=== PATIENT | female | born 1945 | race Caucasian/White ===

== ENCOUNTER 2021-04-22 07:35 | Observation (INO) ==
[2021-04-22] MEDS ORDERED: Ondansetron 4 MG/2 ML VIAL IVP PRN (07:56)
[2021-04-22] MEDS ORDERED: Naloxone 0.4 MG/ML INJ IVP PRN (07:56)
[2021-04-22 09:26] LABS: Bilirubin,Urine Negative (Negative); Blood,Urine Negative (Negative); Clarity,Urine Clear (Clear); Color,Urine Colorless (Yellow); Glucose,Urine (UA) Normal (Normal); Ketones,Urine Negative (Negative); Leukocyte Esterase,Urine Negative (Negative); Nitrite,Urine Negative (Negative); Protein,Urine Negative (Neg-Trace); Specific Gravity,Urine 1.009 (1.010-1.025); Urobilinogen,Urine Normal (Normal)
[2021-04-22 10:19] LABS: Adenovirus Not Detected (Not Detect); Coronavirus 229E Not Detected (Not Detect); Coronavirus HKU1 Not Detected (Not Detect); Coronavirus NL63 Not Detected (Not Detect); Coronavirus OC43 Not Detected (Not Detect); Human Metapneumovirus Not Detected (Not Detect); Human Rhinovirus/Enterovirus Not Detected (Not Detect); Influenza A Subtype 2009 H1 Not Detected (Not Detect); Parainfluenza Virus 1 Not Detected (Not Detect); Parainfluenza Virus 2 Not Detected (Not Detect); SARS-CoV-2 Not Detected (Not Detect)
[2021-04-22 10:20] LABS: Bordetella Pertussis Not Detected (Not Detect); Chlamydophila pneumoniae Not Detected (Not Detect); Influenza B Not Detected (Not Detect); Mycoplasma pneumoniae Not Detected (Not Detect); Parainfluenza Virus 3 Not Detected (Not Detect); Parainfluenza Virus 4 Not Detected (Not Detect); Respiratory Syncytial Virus Not Detected (Not Detect)
[2021-04-22 10:51] LABS: Basophils % 0.6 %; Eosinophils # 0.1 K/mcL (0.0-0.6); Hematocrit 33.7 % (35.3-44.9); Hemoglobin 10.9 g/dL (11.5-15.4); Immature Granulocytes % 0.3 % (0-4); Lymphocytes # 0.7 K/mcL (0.6-4.6); Lymphocytes % 20.5 %; Mean Corpuscular HGB Conc 32.3 g/dL (31.6-35.5); Mean Corpuscular Hemoglobin 29.7 pg (28.0-33.3); Mean Corpuscular Volume 91.8 fL (83.0-100.0); Mean Platelet Volume 10.1 fL (9.4-12.4); Monocytes # 0.1 K/mcL (0.0-1.3); Monocytes % 3.9 %; Neutrophils # 2.6 K/mcL (1.6-8.9); Red Blood Count 3.67 M/mcL (3.82-4.97); Red Cell Distribution Width 14.9 % (11.5-14.5); Segmented Neutrophils % 72.7 %; White Blood Count 3.6 K/mcL (4.3-11.1)
[2021-04-22 10:53] LABS: Platelet Count 45 K/mcL (140-400)
[2021-04-22 11:02] LABS: INR 1.5; Prothrombin Time 16.4 Seconds (9.4-12.1)
[2021-04-22] MEDS ORDERED: *HR* OxyCODONE Immed Rel 5 MG TABLET PO PRN (11:08)
[2021-04-22] MEDS ORDERED: clonazePAM 0.5 MG TABLET PO PRN (11:08)
[2021-04-22] MEDS ORDERED: Benzonatate 100 MG CAPSULE PO PRN (11:08)
[2021-04-22 11:13] LABS: BUN/Creatinine Ratio 24 (6-26); Blood Urea Nitrogen 20 mg/dL (8-23); Calcium 9.1 mg/dL (8.6-10.3); Carbon Dioxide 25 mEq/L (23-29); Chloride 108 mEq/L (98-107); Glucose 272 mg/dL (70-105); Osmolality,Calculated 300 (280-300); Phosphorous 3.5 mg/dL (2.7-4.5); Potassium 3.9 mEq/L (3.5-5.1); Sodium 139 mEq/L (136-145); eGFR For African Americans > 60 (> 60); eGFR For Non-African Americans > 60 (> 60)
[2021-04-22 11:14] LABS: Troponin I < 0.03 ng/mL (< 0.04)
[2021-04-22] MEDS ORDERED: POLYMYXIN B SULF OP SCH (11:15)
[2021-04-22] MEDS ORDERED: NEOMYCIN OP SCH (11:15)
[2021-04-22] MEDS ORDERED: [UNRECOGNIZED DRUG - OTHER] OP SCH (11:15)
[2021-04-22 11:18] LABS: Procalcitonin 0.34 ng/mL (0.00-0.15)
[2021-04-22] MEDS ORDERED: *HR* Metoprolol 5 MG/5 ML VIAL IVP PRN (11:21)
[2021-04-22] MEDS ORDERED: Perflutren Lipid Microsphere 1.3 ML in 0.9 % Sodium Chloride 8.7 ML IVP PRN (11:25)
[2021-04-22 11:28] LABS: Thyroid Stimulating Hormone 4.968 mcIU/mL (0.340-5.600)
[2021-04-22 12:13] LABS: C-Reactive Protein 13 mg/L (Less than 10)
[2021-04-22] MEDS ORDERED: Isovue-370 500 ML BOTTLE IVP ONE (13:01)
[2021-04-22] MEDS: ceFAZolin 2,000 MG in 0.9 % Sodium Chloride 100 ML IVPB SCH (14:54)
[2021-04-22] MEDS: Nystatin Ointment 15 GM TUBE TP SCH ×2 (14:54→20:08)
[2021-04-22] MEDS: Nystatin POWDER 30 GM BOTTLE TP SCH ×2 (14:54→20:08)
[2021-04-22] MEDS: Doxycycline 100 MG in 0.9 % Sodium Chloride Mini Bag 100 ML IVPB SCH (18:00)
[2021-04-22] MEDS: Mirtazapine 15 MG TABLET PO SCH (20:07)
[2021-04-23] MEDS: ceFAZolin 2,000 MG in 0.9 % Sodium Chloride 100 ML IVPB SCH ×2 (00:26→09:36)
[2021-04-23] MEDS: Doxycycline 100 MG in 0.9 % Sodium Chloride Mini Bag 100 ML IVPB SCH (05:08)
[2021-04-23 05:54] LABS: Basophils % 0.3 %; Hemoglobin 10.6 g/dL (11.5-15.4); Mean Corpuscular Hemoglobin 29.5 pg (28.0-33.3); Red Blood Count 3.59 M/mcL (3.82-4.97); Segmented Neutrophils % 62.3 %; White Blood Count 3.2 K/mcL (4.3-11.1)
[2021-04-23 05:56] LABS: Eosinophils # 0.1 K/mcL (0.0-0.6); Eosinophils % 1.9 %; Hematocrit 33.2 % (35.3-44.9); Immature Granulocytes % 0.3 % (0-4); Immature Platelets 3.8 % (1.1-6.1); Lymphocytes # 0.9 K/mcL (0.6-4.6); Lymphocytes % 28.9 %; Mean Corpuscular HGB Conc 31.9 g/dL (31.6-35.5); Mean Corpuscular Volume 92.5 fL (83.0-100.0); Mean Platelet Volume 11.9 fL (9.4-12.4); Monocytes # 0.2 K/mcL (0.0-1.3); Monocytes % 6.3 %; Red Cell Distribution Width 14.6 % (11.5-14.5)
[2021-04-23 05:58] LABS: Platelet Count 47 K/mcL (140-400)
[2021-04-23 06:13] LABS: BUN/Creatinine Ratio 20 (6-26); Blood Urea Nitrogen 17 mg/dL (8-23); Calcium 8.8 mg/dL (8.6-10.3); Carbon Dioxide 27 mEq/L (23-29); Chloride 107 mEq/L (98-107); Glucose 243 mg/dL (70-105); Osmolality,Calculated 298 (280-300); Potassium 3.9 mEq/L (3.5-5.1); Sodium 139 mEq/L (136-145); eGFR For African Americans > 60 (> 60); eGFR For Non-African Americans > 60 (> 60)
[2021-04-23] MEDS ORDERED: Cyanocobalamin (B-12) 1,000 MCG/ML VIAL IM SCH (07:30)
[2021-04-23] MEDS ORDERED: NON-FORMULARY MEDICATION 1 EACH EACH (Fluticasone/Salmeterol [Advair 250-50 Diskus] 1 EACH IH SCH (09:00)
[2021-04-23] MEDS: allopurinoL 100 MG TABLET PO SCH (09:22)
[2021-04-23] MEDS: levETIRAcetam 250 MG TABLET PO SCH ×2 (09:22→20:52)
[2021-04-23] MEDS: gemfibroziL 600 MG TABLET PO SCH ×2 (09:23→16:26)
[2021-04-23] MEDS: Nystatin Ointment 15 GM TUBE TP SCH ×3 (09:24→20:53)
[2021-04-23] MEDS: Aspirin 81 MG TAB.CHEW PO SCH (09:24)
[2021-04-23] MEDS: Nystatin POWDER 30 GM BOTTLE TP SCH ×3 (09:24→20:52)
[2021-04-23] MEDS: Furosemide 20 MG TABLET PO SCH (09:24)
[2021-04-23] MEDS: Isosorbide MONOnitrate (24 HR) 60 MG TAB.ER.24H PO SCH (09:24)
[2021-04-23] MEDS: Famotidine 20 MG TABLET PO SCH (09:24)
[2021-04-23] MEDS: Budesonide/Formoterol 80/4.5 1 PUFF INH IH SCH ×2 (10:25→21:00)
[2021-04-23] MEDS: cephALEXin 500 MG CAPSULE PO SCH ×2 (14:29→20:52)
[2021-04-23] MEDS ORDERED: *HR* Rivaroxaban 10 MG TABLET PO SCH (17:00)
[2021-04-23] MEDS: Doxycycline 100 MG CAPSULE PO SCH (20:52)
[2021-04-23] MEDS: Mirtazapine 15 MG TABLET PO SCH (20:52)
[2021-04-24 04:49] LABS: Basophils % 0.7 %; Hemoglobin 9.8 g/dL (11.5-15.4); Immature Granulocytes % 0.3 % (0-4); Monocytes % 6.8 %
[2021-04-24 04:50] LABS: Eosinophils # 0.1 K/mcL (0.0-0.6); Eosinophils % 2.7 %; Hematocrit 30.1 % (35.3-44.9); Immature Platelets 3.5 % (1.1-6.1); Lymphocytes % 32.9 %; Mean Corpuscular HGB Conc 32.6 g/dL (31.6-35.5); Mean Corpuscular Hemoglobin 30.3 pg (28.0-33.3); Mean Corpuscular Volume 93.2 fL (83.0-100.0); Mean Platelet Volume 10.7 fL (9.4-12.4); Monocytes # 0.2 K/mcL (0.0-1.3); Neutrophils # 1.7 K/mcL (1.6-8.9); Red Blood Count 3.23 M/mcL (3.82-4.97); Red Cell Distribution Width 14.3 % (11.5-14.5); Segmented Neutrophils % 56.6 %
[2021-04-24 04:57] LABS: Platelet Count 39 K/mcL (140-400)
[2021-04-24 05:10] LABS: Alanine Aminotransferase 9 Units/L (7-52); Albumin 3.3 g/dL (3.5-5.7); Albumin/Globulin Ratio 1.7 (1.1-2.2); Alkaline Phosphatase 94 Units/L (34-104); Aspartate Amino Transferase 15 Units/L (13-39); BUN/Creatinine Ratio 31 (6-26); Bilirubin,Total 0.4 mg/dL (0.3-1.0); Blood Urea Nitrogen 20 mg/dL (8-23); Calcium 8.7 mg/dL (8.6-10.3); Carbon Dioxide 22 mEq/L (23-29); Chloride 108 mEq/L (98-107); Glucose 357 mg/dL (70-105); Osmolality,Calculated 297 (280-300); Potassium 4.2 mEq/L (3.5-5.1); Sodium 135 mEq/L (136-145); Total Protein 5.3 g/dL (6.4-8.9); eGFR For African Americans > 60 (> 60); eGFR For Non-African Americans > 60 (> 60)
[2021-04-24] MEDS: Budesonide/Formoterol 80/4.5 1 PUFF INH IH SCH (08:06)
[2021-04-24] MEDS: Aspirin 81 MG TAB.CHEW PO SCH (08:35)
[2021-04-24] MEDS: gemfibroziL 600 MG TABLET PO SCH (08:35)
[2021-04-24] MEDS: levETIRAcetam 250 MG TABLET PO SCH (08:35)
[2021-04-24] MEDS: Doxycycline 100 MG CAPSULE PO SCH (08:35)
[2021-04-24] MEDS: cephALEXin 500 MG CAPSULE PO SCH ×2 (08:35→15:17)
[2021-04-24] MEDS: allopurinoL 100 MG TABLET PO SCH (08:35)
[2021-04-24] MEDS: Isosorbide MONOnitrate (24 HR) 60 MG TAB.ER.24H PO SCH (08:35)
[2021-04-24] MEDS: Furosemide 20 MG TABLET PO SCH (08:36)
[2021-04-24] MEDS: Famotidine 20 MG TABLET PO SCH (08:36)
[2021-04-24] MEDS: Nystatin Ointment 15 GM TUBE TP SCH ×2 (08:36→15:17)
[2021-04-24] MEDS: Nystatin POWDER 30 GM BOTTLE TP SCH ×2 (08:36→15:17)
[2021-04-24 11:10] VITALS: BP 116/57; PULSE 65; TEMP 97.7; O2SAT 98
[2021-04-24] MEDS ORDERED: Dextrose Gel 15 GM/37.5 ML TUBE PO PRN ×2 (11:22)
[2021-04-24] MEDS ORDERED: *HR* Dextrose 50 % in Water (Syg) 50 ML SYRINGE IVP PRN (11:22)
[2021-04-24] MEDS ORDERED: D5% in Water 1,000 ML IVC PRN (11:22)
[2021-04-24] MEDS ORDERED: Insulin LISPRO 300 UNITS/3 ML VIAL SUBQ SCH ×2 (11:30→21:00)
[2021-04-24] MEDS ORDERED: Insulin DETEMIR 100 UNIT/ML X5UNITS SUBQ ONE (12:55)
[2021-04-24 14:20] LABS: Estimated Average Glucose 160 mg/dl; Hemoglobin A1C 7.2 %
[2021-04-24] MEDS ORDERED: *HR* Rivaroxaban 10 MG TABLET PO SCH (17:00)
[2021-04-27] MEDS ORDERED: Ergocalciferol (VIT D2) 50,000 UNIT (1.25MG) CAP PO SCH (09:00)
== END 2021-04-24 17:42 | disposition home health service (06) ==
LOC: 3ANU → SUATTDRO 07:35
PROVIDERS: ADMIT Internal Medicine; ATTEND Registered Nurse